=== PATIENT | female | born 1965 | race Caucasian/White ===

== ENCOUNTER 2016-06-29 11:23 | Emergency (ER) | payer OTHER ==
[~2016-06-29] VITALS: Ht 162.6 cm; Wt 149.7 kg
[2016-06-29 11:31] VITALS: BP 156/81
--- NOTE | 2016-06-29 11:56 | ED ANKLE/FOOT INJURY COMPLAINT ---
History of Present Illness General Chief Complaint: Foot or Ankle Injury Stated Complaint: RIGHT FOOT PAIN Source: patient, family, old records Exam Limitations: no limitations Vital Signs & Intake/Output Vital Signs & Intake/Output Vital Signs Date Time Temp Pulse Resp B/P Pulse O2 O2 Flow FiO2 Ox Delivery Rate 06/29 1131 98.4 74 20 156/81 97 Room Air Allergies Coded Allergies: Sulfa (Sulfonamide Antibiotics) (RASH 06/29/16) adhesive tape (RASH 06/29/16) Reconcile Medications Oxycodone HCl/Acetaminophen (Percocet 5-325 MG Tablet) 5 MG-325 MG TABLET 1 TAB PO 4 TIMES/DAY PRN severe pain Prednisone 20 MG TABLET 1 TAB PO BID tendonitis Triage Note: PT TO ED C/O RIGHT FOOT PAIN. SAW [employer] DR BRICE ON FRIDAY 06/23, WAS DX'D WITH TENDONITITS AND SENT HOME WITH RX'S. PT STATES SHE WAS FEELING BETTER UNTIL YESTERDAY. STATES SHE WAS WALKING AROUND THE [place] YESTERDAY AND HER FOOT PAIN CAME BACK. PT USING HER OWN CANE FROM HOME. Triage Nurses Notes Reviewed? yes Occurred: last week Duration: day(s):, constant, continues in ED, getting worse Timing: recent history Severity: severe Pain/Injury Location: Right: Foot. Method of Injury: unknown Modifying Factors: Improves With: immobilization, rest. Worsens With: movement. Associated Symptoms: none, GCS 15 since, stiffness LMP (ages 10-50): post menopausal : No Patient currently breastfeeds: No HPI: 1 week prior to admission patient complains of right foot pain described as sharp constant nonradiating worse with weightbearing palpation. 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 1 day prior to admission she was walking about - developing increased pain. She denies fever chills nausea vomiting diarrhea abdominal pain chest pain shortness breath headache dysuria rash bleeding change in motor sensory function injury. Past History Travel History Traveled to [place] past 21 day No Medical History Any Pertinent Medical History? see below for history Cardiovascular: hypertension, hyperlipidemia Musculoskeletal: osteoarthritis Endocrine: hypothyroidism, PRE-DM Surgical History Surgical History: non-contributory Psychosocial History What is your primary language Kiswahili Tobacco Use: Never used ETOH Use: denies use Illicit Drug Use: denies illicit drug use Family History Hx Contributory? No Review of Systems Review of Systems Constitutional: Reports: no symptoms. EENTM: Reports: no symptoms. Respiratory: Reports: no symptoms. Cardiovascular: Reports: no symptoms. GI: Reports: no symptoms. Genitourinary: Reports: no symptoms. Musculoskeletal: Reports: see HPI, joint pain, joint swelling. Skin: Reports: no symptoms. Neurological/Psychological: Reports: no symptoms. Hematologic/Endocrine: Reports: no symptoms. Immunologic/Allergic: Reports: no symptoms. All Other Systems: Reviewed and Negative Physical Exam Physical Exam General Appearance: well developed/nourished, alert, awake, anxious, mild distress, obese Head: atraumatic, normal appearance Eyes: Bilateral: normal appearance, PERRL, EOMI. Ears, Nose, Throat: normal pharynx, normal ENT inspection, hearing grossly normal Neck: normal inspection, supple, full range of motion Cardiovascular/Respiratory: normal breath sounds, normal peripheral pulses, regular rate/rhythm, no respiratory distress Back: normal inspection, normal range of motion, no vertebral tenderness Leg/Knee/Thigh Left: normal range of motion, normal inspection Leg/Knee/Thigh Right: normal range of motion, normal inspection Ankle Left: normal inspection, normal range of motion Ankle Right: normal inspection, normal range of motion Foot Left: normal inspection, normal range of motion Foot Right: normal range of motion, tenderness, limited range of motion, soft tissue tenderness, swelling (mild) Reflexes: 2+: knee (R), knee (L). Neuro/Vascular: normal motor function, normal sensation Tendon: normal tendon function Psychiatric: awake, alert, oriented x 3 Skin: intact, normal color, warm/dry Progress Differential Diagnosis: gout, fracture, sprain, contusion Plan of Care: Orders Procedure Date/time Status Durable Medical Equipment 06/29 1245 Active Diagnostic Imaging: Viewed by Me: Radiology Read. Discussed w/RAD: Radiology Read. Radiology Impression: 1. No acute fracture or dislocation. 2. Prominent cortical thickening of the fourth and fifth metatarsal bones. This may be a normal variant versus in the setting of focal pain related to a stress reaction or radiographically occult stress fracture. Close clinical correlation is requested. If indicated, findings could be further assessed with an MRI scan. 3. Prominent enthesopathic changes and spurring of the calcaneus. Departure Departure Time of Disposition: 124 Disposition: HOME OR SELF CARE Condition: Stable Clinical Impression Primary Impression: Stress fracture of foot Qualifiers: Encounter type: initial encounter Laterality: right Qualified Code: M84.374A - Stress fracture, right foot, initial encounter for fracture Secondary Impressions: Tendonitis of foot Referrals: Susy BRICE DPM, MD,[facility] (PCP/Family) Departure Forms: Customer Survey General Discharge Information RELEASE- WORK Prescriptions: Current Visit Scripts Oxycodone HCl/Acetaminophen (Percocet 5-325 MG Tablet) 1 TAB PO 4 TIMES/DAY PRN severe pain #20 TAB Prednisone 1 TAB PO BID #10 TAB
--- NOTE | 2016-06-29 12:32 | RADIOLOGY REPORT ---
EXAMINATION: XR FOOT, RIGHT CLINICAL INFORMATION: Right fifth metatarsal pain and tenderness. COMPARISON: None TECHNIQUE: AP, lateral, and oblique views of the right foot. FINDINGS: No acute fracture or dislocation is seen. No radiopaque foreign body. There is prominent cortical thickening seen involving the fourth and fifth metatarsal bones. Prominent posterior calcaneal ossifications in the distal Achilles tendon, consistent with enthesopathic changes. Moderate plantar calcaneal spur. No ankle joint effusion. IMPRESSION: 1. No acute fracture or dislocation. 2. Prominent cortical thickening of the fourth and fifth metatarsal bones. This may be a normal variant versus in the setting of focal pain related to a stress reaction or radiographically occult stress fracture. Close clinical correlation is requested. If indicated, findings could be further assessed with an MRI scan. 3. Prominent enthesopathic changes and spurring of the calcaneus.
[2016-06-29] MEDS ORDERED: PERCOCET 5-3251 EACH PO (12:43)
[2016-06-29] MEDS ORDERED: PREDNISONE20 M1 PO (12:43)
== END 2016-06-29 12:59 ==
LOC: ERH 11:23
DX: M84.374A Stress fracture, right foot, initial encounter for fracture (principal); M77.9 Enthesopathy, unspecified
CPT/HCPCS: 73630-RT